=== PATIENT | male | born 1990 | race African-American/Black ===

== ENCOUNTER → 2020-04-18 | Outpatient (CLI) | payer BC, OTHER ==
[~2020-04-18] MED LIST: BENADRYL25 MG PO
== END ==
LOC: ULTRA 08:38
PROVIDERS: ATTEND Family Medicine
DX: R10.9 Unspecified abdominal pain (principal)

== ENCOUNTER 2020-12-29 18:36 | Emergency (ER) | payer BC, OTHER ==
[~2020-12-29] VITALS: Ht 170.2 cm; Wt 81.7 kg
[2020-12-29 19:34] LABS: CALCIUM 9.3 mg/dL (8.5-10.1); CREATININE 1.2 mg/dL (0.7-1.3)
[2020-12-29 19:40] LABS: ALBUMIN 4.5 g/dL (3.4-5.0); MAGNESIUM 2.3 mg/dL (1.8-2.4); TOTAL BILIRUBIN 0.4 mg/dL (0.2-1.0); TOTAL PROTEIN 8.1 g/dL (6.4-8.2)
[2020-12-29 19:44] LABS: POTASSIUM 4.1 mmol/L (3.5-5.1)
[2020-12-29 19:52] LABS: URINE BILIRUBIN NEGATIVE (Negative); URINE BLOOD NEGATIVE (Negative); URINE CLARITY CLEAR; URINE GLUCOSE-RANDOM* NEGATIVE (Negative); URINE KETONES NEGATIVE (Negative); URINE LEUKOCYTES-REFLEX NEGATIVE (Negative); URINE NITRITE-REFLEX NEGATIVE (Negative); URINE PROTEIN (DIPSTICK) NEGATIVE (Negative); URINE UROBILINOGEN 0.2 E.U./dl (0.2-1.0)
[2020-12-29 19:55] LABS: URINE COLOR STRAW
[2020-12-29 20:11] LABS: HEMATOCRIT 48.7 % (42.0-52.0); HEMOGLOBIN 16.3 gm/dL (14.0-18.0); MCH 27.3 pg (26.0-34.0); MCHC 33.4 g/dL (28.0-37.0); MCV 81.8 fL (80.0-100.0); RBC 5.96 mil/uL (4.50-6.00); RDW 13.1 % (10.5-14.5); WBC 4.8 thou/uL (4.0-11.0)
[2020-12-29] MEDS ORDERED: MEDROLDOSEPACK PO (20:39)
[2020-12-29] MEDS ORDERED: METHOCARBAMOL500 M2 PO (20:39)
[2020-12-30 07:13] VITALS: BP 132/95
== END 2020-12-29 21:01 | disposition home or self-care (01) ==
LOC: ER 18:36
PROVIDERS: Nurse Practitioner Family
DX: M62.830 Muscle spasm of back (principal); M62.831 Muscle spasm of calf; F12.90 Cannabis use, unspecified, uncomplicated; Z91.09 Other allergy status, other than to drugs and biological substances; Z79.899 Other long term (current) drug therapy; Z88.0 Allergy status to penicillin